=== PATIENT | male | born 1960 ===

== ENCOUNTER 2017-06-25 12:24 | Emergency (ER) | payer MEDICARE, MEDICAID ==
[2017-06-25 12:39] VITALS: BP 125/77; PULSE 93; RESP 18; TEMP 98.7; O2SAT 98
[2017-06-25 14:21] LABS: BASO # 0.1 K/uL (0.0-0.2); BASO % 0.9 % (0.0-2.0); EOS # 0.2 K/uL (0.0-0.7); EOS % 3.7 % (0.0-4.0); HEMOGLOBIN 12.9 g/dL (12.0-18.0); LYMPH # 1.7 K/uL (1.0-4.3); LYMPH % 27.4 % (20.0-40.0); MEAN CORPUSCULAR HGB CONC 34.1 g/dL (33.0-37.0); MEAN PLATELET VOLUME 8.7 fl (7.2-11.7); MONO # 0.5 K/uL (0.0-0.8); MONO % 8.1 % (0.0-10.0); NEUT # 3.7 K/uL (1.8-7.0); NEUT % 59.9 % (50.0-75.0); NRBC % 0.1 % (0.0-0.0); RBC 4.03 Mil/uL (4.40-5.90); RED CELL DISTRIBUTION WIDTH 13.6 % (11.5-14.5); WHITE BLOOD COUNT 6.1 K/uL (4.8-10.8)
[2017-06-25 14:25] LABS: ALBUMIN 3.5 g/dL (3.5-5.0); ALT/SGPT 49 U/L (21-72); AST/SGOT 52 U/L (17-59); BLOOD UREA NITROGEN 10 mg/dl (9-20); CALCIUM 8.6 mg/dL (8.4-10.2); GFR AFRICAN-AMERICAN > 60; GFR NON-AFRICAN AMERICAN > 60
--- NOTE | 2017-06-25 14:48 | ED PDOC ---
Lower Extremity Pain/Injury Time Seen by Provider: 06/25/17 12:41 Chief Complaint (Nursing): Lower Extremity Problem/Injury Chief Complaint (Provider): Left leg swelling, 2 days History Per: Patient History/Exam Limitations: no limitations Onset/Duration Of Symptoms: Days Current Symptoms Are (Timing): Still Present Severity: Severe Pain Scale Rating Of: 8 Additional Complaint(s): Pt reports chronic leg and back pain. States he has been in a senior living for 10 days and states the rules are very strict and he has to sit in a chair most of the day. No fever/chills. Pt states he was seen by his primary today who told him to come to the ER for evaluation of abnormal clots in LE Past Medical History Reviewed: Historical Data, Nursing Documentation, Vital Signs Vital Signs: Last Vital Signs Temp 98.7 F 06/25/17 12:32 Pulse 93 H 06/25/17 12:32 Resp 18 06/25/17 12:32 BP 125/77 06/25/17 12:32 Pulse Ox 98 06/25/17 12:32 - Medical History PMH: Anxiety, Back Problems, Diabetes, Diverticulitis, HTN, Hypercholesterolemia , Post Traumatic Stress Disorder Denies: Anemia, HIV, Chronic Kidney Disease - Surgical History Surgical History: No Surg Hx - Family History Family History: States: No Known Family Hx - Living Arrangements Living Arrangements: With Family - Social History Current smoker - smoking cessation education provided: No - Home Medications Home Medications: Ambulatory Orders Medication Instructions Recorded ALPRAZolam [Xanax] 0.25 mg PO BID 08/19/15 Atorvastatin [Lipitor] 20 mg PO DAILY 08/19/15 Gabapentin [Neurontin] 300 mg PO QID 08/19/15 HCTZ/Losartan Potassium [Hyzaar 1 tab PO DAILY 08/19/15 12.5 mg-50 mg] metFORMIN [glucOPHAGE] 500 mg PO DAILY 08/19/15 traMADol [Ultram] 50 mg PO QID PRN 08/19/15 - Allergies Allergies/Adverse Reactions: Allergies Allergy/AdvReac Type Severity Reaction Status Date / Time morphine Allergy RASH Verified 08/19/15 12:17 Penicillins Allergy RASH Verified 08/19/15 12:17 sulfur dioxide Allergy RASH Verified 06/25/17 12:37 Review of Systems ROS Statement: Except As Marked, All Systems Reviewed And Found Negative Constitutional: Negative for: Fever, Chills Gastrointestinal: Negative for: Nausea, Vomiting, Abdominal Pain Musculoskeletal: Positive for: Leg Pain Skin: Negative for: Rash Physical Exam - Reviewed Nursing Documentation Reviewed: Yes Vital Signs Reviewed: Yes - Physical Exam Appears: Positive for: Well, Non-toxic, No Acute Distress Head Exam: Positive for: ATRAUMATIC, NORMAL INSPECTION, NORMOCEPHALIC Skin: Positive for: Normal Color (No erythema ), Warm Eye Exam: Positive for: Normal appearance ENT: Positive for: Normal ENT Inspection Neck: Positive for: Normal, Painless ROM Cardiovascular/Chest: Positive for: Regular Rate, Rhythm Respiratory: Positive for: Normal Breath Sounds. Negative for: Accessory Muscle Use, Respiratory Distress Pulses-Dorsalis Pedis (L): 2+ Pulses-Dorsalis Pedis (R): 2+ Back: Positive for: Normal Inspection Extremity: Positive for: Normal ROM, Swelling (Left LE ). Negative for: Deformity Neurologic/Psych: Positive for: Alert, Oriented - Laboratory Results Result Diagrams: 06/25/17 14:05 06/25/17 14:05 - ECG O2 Sat by Pulse Oximetry: 98 Medical Decision Making Medical Decision Making: Labs normal. US negative for DVT. Disposition - Clinical Impression Clinical Impression: Lower leg edema - Patient ED Disposition Is Patient to be Admitted: No Counseled Patient/Family Regarding: Diagnosis, Need For Followup - Disposition Referrals: [facility] [Outside] [facility] [Outside] Disposition: Routine/Home Disposition Time: 14:50 Condition: GOOD Instructions: Leg Edema (ED)
--- NOTE | 2017-06-25 16:28 | US ---
HISTORY: left leg edema . PRIORS: None. FINDINGS: 2-D, color and duplex Doppler analysis of the lower extremity venous circulation using routine protocol from the femoral veins through the popliteal veins. Venous compressibility: Normal. Flow and augmentation patterns: Normal. Visualized veins upper third of calf: Normal. Jacobs cyst: None. IMPRESSION: No sonographic or Doppler evidence for DVT in left lower extremity.
== END 2017-06-25 15:35 | disposition home or self-care (01) ==
LOC: H.ER 12:24
DX: R60.0 Localized edema (principal); E11.9 Type 2 diabetes mellitus without complications; E78.00 Pure hypercholesterolemia, unspecified; F43.10 Post-traumatic stress disorder, unspecified; I10 Essential (primary) hypertension; Z79.84 Long term (current) use of oral hypoglycemic drugs; Z88.0 Allergy status to penicillin

== ENCOUNTER 2017-06-27 11:07 | Emergency (ER) | payer MEDICARE, MEDICAID ==
[2017-06-27 11:25] VITALS: BP 105/71; PULSE 87; RESP 16; TEMP 97; O2SAT 99
--- NOTE | 2017-06-27 11:32 | ED PDOC ---
HPI: General Adult Time Seen by Provider: 06/27/17 11:18 Chief Complaint (Nursing): Upper Extremity Problem/Injury History Per: Patient Onset/Duration Of Symptoms: Days (2) Current Symptoms Are (Timing): Still Present Severity: Moderate Pain Scale Rating Of: 4 Additional Complaint(s): Sharp left sided neck pain radiating to left shoulder. Worse on tilting head side to side. No weakness or parsthesias. no h/o trauma. H/o cervical disc disease. Past Medical History Vital Signs: Last Vital Signs Temp 97.0 F L 06/27/17 11:22 Pulse 87 06/27/17 11:22 Resp 16 06/27/17 11:22 BP 105/71 06/27/17 11:22 Pulse Ox 99 06/27/17 11:32 - Medical History PMH: Anxiety, Back Problems, Diabetes, Diverticulitis, HTN, Hypercholesterolemia , Post Traumatic Stress Disorder Denies: Anemia, HIV, Chronic Kidney Disease - Family History Family History: States: Unknown Family Hx - Home Medications Home Medications: Ambulatory Orders Medication Instructions Recorded ALPRAZolam [Xanax] 0.25 mg PO BID 08/19/15 Atorvastatin [Lipitor] 20 mg PO DAILY 08/19/15 Gabapentin [Neurontin] 300 mg PO QID 08/19/15 HCTZ/Losartan Potassium [Hyzaar 1 tab PO DAILY 08/19/15 12.5 mg-50 mg] metFORMIN [glucOPHAGE] 500 mg PO DAILY 08/19/15 traMADol [Ultram] 50 mg PO QID PRN 08/19/15 Cyclobenzaprine [Cyclobenzaprine 10 mg PO TID #10 tab 06/27/17 HCl] Methylprednisolone [Medrol Dose 4 mg PO DAILY #21 tab 06/27/17 Pack (21 tabs)] - Allergies Allergies/Adverse Reactions: Allergies Allergy/AdvReac Type Severity Reaction Status Date / Time morphine Allergy RASH Verified 08/19/15 12:17 Penicillins Allergy RASH Verified 08/19/15 12:17 sulfur dioxide Allergy RASH Verified 06/25/17 12:37 Review of Systems Cardiovascular: Negative for: Chest Pain Musculoskeletal: Positive for: Neck Pain, Shoulder Pain Neurological: Negative for: Weakness, Numbness Physical Exam - Physical Exam Appears: Positive for: Non-toxic, No Acute Distress Skin: Positive for: Normal Color, Warm, DRY Neck: Positive for: Pain On Movement Of Neck. Negative for: Painless ROM (Pain when tilting head side to side) Cardiovascular/Chest: Positive for: Regular Rate, Rhythm Respiratory: Positive for: Normal Breath Sounds Neurologic/Psych: Positive for: Alert, Oriented. Negative for: Motor/Sensory Deficits - ECG O2 Sat by Pulse Oximetry: 99 Disposition - Clinical Impression Clinical Impression: Cervical radiculopathy - Patient ED Disposition Is Patient to be Admitted: No Counseled Patient/Family Regarding: Studies Performed, Diagnosis, Need For Followup, Rx Given - Disposition Referrals: [facility] [Outside] Disposition: Routine/Home Disposition Time: 12:18 Condition: FAIR Prescriptions: Cyclobenzaprine [Cyclobenzaprine HCl] 10 mg PO TID #10 tab Methylprednisolone [Medrol Dose Pack (21 tabs)] 4 mg PO DAILY #21 tab Instructions: Cervical Radiculopathy (ED) Forms: [employer] (Martiniquais)
--- NOTE | 2017-06-27 13:27 | RAD ---
PROCEDURE: Cervical Spine Radiographs. HISTORY: Neck Pain. No history of recent/ related trauma provided COMPARISON: None. FINDINGS: BONES: Alignment maintained. No fracture. Dens Intact. DISC SPACES: Normal. SOFT TISSUES: Normal. No prevertebral soft tissue swelling. OTHER FINDINGS: None. IMPRESSION: Normal cervical spine radiographs Concordant results with the preliminary interpretation rendered by the emergency department physician procedure.
== END 2017-06-27 13:27 | disposition home or self-care (01) ==
LOC: H.ER 11:07
DX: M54.12 Radiculopathy, cervical region (principal); E11.9 Type 2 diabetes mellitus without complications; E78.00 Pure hypercholesterolemia, unspecified; F43.10 Post-traumatic stress disorder, unspecified; I10 Essential (primary) hypertension; Z79.84 Long term (current) use of oral hypoglycemic drugs; Z88.0 Allergy status to penicillin
CPT/HCPCS: 72052; 82948; 96372; 99282; J1885

== ENCOUNTER 2017-07-15 16:19 | Emergency (ER) | payer MEDICARE, MEDICAID ==
[2017-07-15 16:22] VITALS: BP 129/76; PULSE 86; RESP 18; TEMP 98; O2SAT 96
--- NOTE | 2017-07-15 16:58 | ED PDOC ---
Lower Extremity Pain/Injury Time Seen by Provider: 07/15/17 16:38 Chief Complaint (Nursing): Lower Extremity Problem/Injury Chief Complaint (Provider): Lower leg swelling, weeks History Per: Patient History/Exam Limitations: no limitations Onset/Duration Of Symptoms: Days Current Symptoms Are (Timing): Still Present Additional Complaint(s): 57 yo male with history of cervical spine radiculopathy presents with right arm pain and bilateral leg edema. Pt states the leg edema has been going on for weeks and his PMD is aware. Pt states last time he was seen by his PMD was a week ago and he was given antibiotics for a prostate infection. Pt states he was told to see urologist. Pt denies SOB or chest pain. Pt was seen for neck pain and bilateral leg edema end of may. At that time c-spine x-ray and blood work were completed. Labs were normal at that time. Past Medical History Reviewed: Historical Data, Nursing Documentation, Vital Signs Vital Signs: Last Vital Signs Temp 98 F 07/15/17 16:20 Pulse 86 07/15/17 16:20 Resp 18 07/15/17 16:20 BP 129/76 07/15/17 16:20 Pulse Ox 96 07/15/17 16:20 - Medical History PMH: Anxiety, Back Problems, Diabetes, Diverticulitis, HTN, Hypercholesterolemia , Post Traumatic Stress Disorder Denies: Anemia, HIV, Chronic Kidney Disease - Family History Family History: States: Unknown Family Hx - Home Medications Home Medications: Ambulatory Orders Medication Instructions Recorded ALPRAZolam [Xanax] 0.25 mg PO BID 08/19/15 Atorvastatin [Lipitor] 20 mg PO DAILY 08/19/15 Gabapentin [Neurontin] 300 mg PO QID 08/19/15 HCTZ/Losartan Potassium [Hyzaar 1 tab PO DAILY 08/19/15 12.5 mg-50 mg] metFORMIN [glucOPHAGE] 500 mg PO DAILY 08/19/15 traMADol [Ultram] 50 mg PO QID PRN 08/19/15 Cyclobenzaprine [Cyclobenzaprine 10 mg PO TID #10 tab 06/27/17 HCl] Methylprednisolone [Medrol Dose 4 mg PO DAILY #21 tab 06/27/17 Pack (21 tabs)] - Allergies Allergies/Adverse Reactions: Allergies Allergy/AdvReac Type Severity Reaction Status Date / Time morphine Allergy RASH Verified 07/15/17 16:20 Penicillins Allergy RASH Verified 07/15/17 16:20 sulfur dioxide Allergy RASH Verified 07/15/17 16:20 Review of Systems ROS Statement: Except As Marked, All Systems Reviewed And Found Negative Constitutional: Negative for: Fever, Chills Skin: Positive for: Other Physical Exam - Reviewed Nursing Documentation Reviewed: Yes Vital Signs Reviewed: Yes - Physical Exam Appears: Positive for: Well, Non-toxic, No Acute Distress Head Exam: Positive for: ATRAUMATIC, NORMAL INSPECTION, NORMOCEPHALIC Skin: Positive for: Normal Color, Warm, DRY Eye Exam: Positive for: Normal appearance ENT: Positive for: Normal ENT Inspection Neck: Positive for: Normal, Painless ROM Cardiovascular/Chest: Positive for: Regular Rate, Rhythm Respiratory: Positive for: Normal Breath Sounds. Negative for: Accessory Muscle Use, Respiratory Distress Gastrointestinal/Abdominal: Positive for: Normal Exam, Bowel Sounds, Soft Back: Positive for: Normal Inspection Extremity: Positive for: Normal ROM Neurologic/Psych: Positive for: Alert, Oriented - ECG O2 Sat by Pulse Oximetry: 96 Disposition - Clinical Impression Clinical Impression: Cervical radiculopathy, Lower leg edema - Patient ED Disposition Is Patient to be Admitted: No - Disposition Disposition: Routine/Home Disposition Time: 17:02 Condition: GOOD Additional Instructions: Please follow-up with PMD. Instructions: Cervical Radiculopathy (ED)
[2017-07-15 17:55] LABS: HEMOGLOBIN 12.3 g/dL (12.0-18.0); MEAN CELL VOLUME 92.7 fl (80.0-94.0); MEAN CORPUSCULAR HEMOGLOBIN 31.6 pg (27.0-31.0); MEAN CORPUSCULAR HGB CONC 34.1 g/dL (33.0-37.0); RBC 3.89 Mil/uL (4.40-5.90); RED CELL DISTRIBUTION WIDTH 13.9 % (11.5-14.5); WHITE BLOOD COUNT 5.7 K/uL (4.8-10.8)
[2017-07-15 18:34] LABS: BLOOD UREA NITROGEN 7 mg/dl (9-20); CALCIUM 8.9 mg/dL (8.4-10.2); GFR AFRICAN-AMERICAN > 60; GFR NON-AFRICAN AMERICAN > 60
== END 2017-07-15 19:17 | disposition home or self-care (01) ==
LOC: H.ER 16:19
DX: M54.12 Radiculopathy, cervical region (principal); R60.0 Localized edema
CPT/HCPCS: 80048; 84484; 85027; 96372; 99282; J1885

== ENCOUNTER 2017-12-03 23:42 | Emergency (ER) | payer MEDICARE, MEDICAID ==
--- NOTE | 2017-12-04 00:26 | ED PDOC ---
HPI: Back Time Seen by Provider: 12/03/17 23:51 Chief Complaint (Nursing): Back Pain Chief Complaint (Provider): Back Pain History Per: Patient History/Exam Limitations: no limitations Onset/Duration Of Symptoms: Hrs Current Symptoms Are (Timing): Still Present Previous Symptoms: Back Pain, Neck Pain Additional Complaint(s): Kirill Cisse is a 57 year old male with a past medical history of diabetes, hypertension, and chronic neck and back pain, who is presenting to the ED with complaints of severe back and neck pain, onset earlier today. Patients admits to alcohol consumption earlier today and appears intoxicated and emotional stating that his nephew last week in [place]. He denies any fevers, numbness, tingling, dizziness, or headaches. Patient offers no other medical complaints at this time. Of note, patient reports having microdiscectomy of C2, C3, L4, and L5 vertebrate. PMD: none provided Past Medical History Reviewed: Historical Data, Nursing Documentation, Vital Signs Vital Signs: Last Vital Signs Temp 97.9 F 12/03/17 23:44 Pulse 70 12/03/17 23:44 Resp 17 12/03/17 23:44 BP 107/66 12/03/17 23:44 Pulse Ox 96 12/03/17 23:44 - Medical History PMH: Anxiety, Back Problems, Diabetes, Diverticulitis, HTN, Hypercholesterolemia , Post Traumatic Stress Disorder Denies: Anemia, HIV, Chronic Kidney Disease - Surgical History Other surgeries: microdiscectomy of vertebrate - Family History Family History: States: Unknown Family Hx - Social History Current smoker - smoking cessation education provided: No Alcohol: Other (regurlarly) Drugs: Denies - Home Medications Home Medications: Ambulatory Orders Medication Instructions Recorded ALPRAZolam [Xanax] 0.25 mg PO BID 08/19/15 Atorvastatin [Lipitor] 20 mg PO DAILY 08/19/15 Gabapentin [Neurontin] 300 mg PO QID 08/19/15 HCTZ/Losartan Potassium [Hyzaar 1 tab PO DAILY 08/19/15 12.5 mg-50 mg] metFORMIN [glucOPHAGE] 500 mg PO DAILY 08/19/15 traMADol [Ultram] 50 mg PO QID PRN 08/19/15 Cyclobenzaprine [Cyclobenzaprine 10 mg PO TID #10 tab 06/27/17 HCl] Methylprednisolone [Medrol Dose 4 mg PO DAILY #21 tab 06/27/17 Pack (21 tabs)] - Allergies Allergies/Adverse Reactions: Allergies Allergy/AdvReac Type Severity Reaction Status Date / Time morphine Allergy RASH Verified 07/15/17 16:20 Penicillins Allergy RASH Verified 07/15/17 16:20 sulfur dioxide Allergy RASH Verified 07/15/17 16:20 Review of Systems ROS Statement: Except As Marked, All Systems Reviewed And Found Negative Constitutional: Negative for: Fever Musculoskeletal: Positive for: Neck Pain, Back Pain Neurological: Negative for: Numbness, Headache, Other (tingling) Physical Exam - Reviewed Nursing Documentation Reviewed: Yes Vital Signs Reviewed: Yes - Physical Exam Appears: Positive for: Non-toxic, No Acute Distress, Uncomfortable Head Exam: Positive for: ATRAUMATIC, NORMAL INSPECTION, NORMOCEPHALIC Skin: Positive for: Normal Color, Warm, Dry Eye Exam: Positive for: EOMI, Normal appearance, PERRL ENT: Positive for: Normal ENT Inspection Neck: Positive for: Normal, Painless ROM, Supple Cardiovascular/Chest: Positive for: Regular Rate, Rhythm. Negative for: Murmur Respiratory: Positive for: Normal Breath Sounds. Negative for: Respiratory Distress Gastrointestinal/Abdominal: Positive for: Normal Exam, Soft. Negative for: Tenderness Back: Positive for: Normal Inspection. Negative for: L CVA Tenderness, R CVA Tenderness, Vertebral Tenderness Extremity: Positive for: Normal ROM. Negative for: Deformity Neurologic/Psych: Positive for: Alert, Oriented, Mood/Affect (Affect: Tearful). Negative for: Motor/Sensory Deficits - Laboratory Results Result Diagrams: 12/04/17 00:15 12/04/17 00:15 - ECG O2 Sat by Pulse Oximetry: 96 (RA) Pulse Ox Interpretation: Normal Medical Decision Making Medical Decision Making: Time: 00:09 Impression: 57 year old male with back pain Plan: --Alcohol Serum --CMP --Drug Screen --ED Urine Dipstick --CBC --Toradol 15 mg IV --Glucose, POC --Urinalysis Patient told that he would not receive narcotics due to intoxication; he is agreeable. Patient offered crisis evaluation, but he declines it at the present time. 6:09 Patient reports a significant improvement in symptoms and is now clinically sober. Upon provider reevaluation patient is feeling better, is medically stable , and requires no further treatment in the ED at this time. Patient will be discharged home. Counseling was provided and all questions were answered. There is agreement to discharge plan. Return if symptoms persist or worsen. Scribe Attestation: Documented by, Niesha Trinh acting as a scribe for Eliseo Tinoco MD. Provider Scribe Attestation: All medical record entries made by the Scribe were at my direction and personally dictated by me. I have reviewed the chart and agree that the record accurately reflects my personal performance of the history, physical exam, medical decision making, and the department course for this patient. I have also personally directed, reviewed, and agree with the discharge instructions and disposition. Disposition - Clinical Impression Clinical Impression: Chronic back pain, Alcohol intoxication - Patient ED Disposition Is Patient to be Admitted: No - Disposition Disposition: Routine/Home Disposition Time: 06:11 Condition: STABLE Instructions: Chronic Pain (DC) Forms: [employer] (Guyanese)
[2017-12-04 00:33] LABS: ALBUMIN 4.2 g/dL (3.5-5.0); BLOOD UREA NITROGEN 9 mg/dl (9-20); CALCIUM 8.9 mg/dL (8.4-10.2); GFR AFRICAN-AMERICAN > 60; GFR NON-AFRICAN AMERICAN > 60
[2017-12-04 00:34] LABS: ALT/SGPT 29 U/L (21-72); AST/SGOT 48 U/L (17-59)
[2017-12-04 00:44] LABS: BASO # 0.1 K/uL (0.0-0.2); BASO % 0.9 % (0.0-2.0); EOS # 0.2 K/uL (0.0-0.7); EOS % 2.7 % (0.0-4.0); HEMOGLOBIN 14.4 g/dL (12.0-18.0); LYMPH # 3.2 K/uL (1.0-4.3); LYMPH % 46.5 % (20.0-40.0); MEAN CORPUSCULAR HEMOGLOBIN 32.4 pg (27.0-31.0); MEAN CORPUSCULAR HGB CONC 33.4 g/dL (33.0-37.0); MEAN PLATELET VOLUME 8.9 fl (7.2-11.7); MONO # 0.4 K/uL (0.0-0.8); MONO % 6.1 % (0.0-10.0); NEUT % 43.8 % (50.0-75.0); NRBC % 0.1 % (0.0-0.0); RBC 4.45 Mil/uL (4.40-5.90); RED CELL DISTRIBUTION WIDTH 14.9 % (11.5-14.5); WHITE BLOOD COUNT 6.9 K/uL (4.8-10.8)
[2017-12-04 07:57] VITALS: BP 122/64; PULSE 76; RESP 16; TEMP 98.2
[2017-12-05 06:24] VITALS: O2SAT 96
== END 2017-12-04 07:55 | disposition home or self-care (01) ==
LOC: H.ER 23:42
DX: M54.9 Dorsalgia, unspecified (principal); F10.129 Alcohol abuse with intoxication, unspecified; E11.9 Type 2 diabetes mellitus without complications; I10 Essential (primary) hypertension; E78.00 Pure hypercholesterolemia, unspecified; F43.10 Post-traumatic stress disorder, unspecified; G89.29 Other chronic pain; Z79.84 Long term (current) use of oral hypoglycemic drugs; Z88.0 Allergy status to penicillin
CPT/HCPCS: 80053; 82948; 85025; 96374; 99283; G0480; J1885